=== PATIENT | male | born 1975 | race Caucasian/White ===

== ENCOUNTER 2018-05-21 13:52 | Emergency (ER) | payer BC ==
[~2018-05-21] VITALS: Ht 177.8 cm; Wt 86.2 kg
[2018-05-21] MEDS ORDERED: ASA325 MG PO (17:48)
[2018-05-21] MEDS ORDERED: ULTRACET PO (17:48)
== END 2018-05-21 18:14 | disposition home or self-care (01) ==
LOC: ER 13:52
DX: S86.012A Strain of left Achilles tendon, initial encounter (principal); X50.0XXA Overexertion from strenuous movement or load, initial encounter; Y93.69 Activity, other involving other sports and athletics played as a team or group; Y92.39 Other specified sports and athletic area as the place of occurrence of the external cause; Y99.8 Other external cause status